=== PATIENT | male | born 1950 | race Caucasian/White ===

== ENCOUNTER 2020-08-25 09:27 | Emergency (ER) | payer BC, OTHER ==
[~2020-08-25] VITALS: Ht 172.7 cm; Wt 97.1 kg
[2020-08-25 09:40] VITALS: BP 123/69
[2020-08-25] MEDS ORDERED: diphenhydrAMINE 50 MG CAP PO ONE (09:55)
[2020-08-25 10:03] VITALS: BP 123/69
== END 2020-08-25 10:04 | disposition home or self-care (01) ==
LOC: MED 09:27
DX: R22.0 Localized swelling, mass and lump, head (principal); R21 Rash and other nonspecific skin eruption
CPT/HCPCS: 99283; Q0163